=== PATIENT | female | born 1965 | race Caucasian/White ===

== ENCOUNTER 2016-10-07 08:00 | Outpatient (CLI) | payer OTHER | END 2016-10-07 08:01 | disposition home or self-care (01) | DX: R16.1 Splenomegaly, not elsewhere classified (principal); E03.9 Hypothyroidism, unspecified; Z85.850 Personal history of malignant neoplasm of thyroid; R16.0 Hepatomegaly, not elsewhere classified; R07.9 Chest pain, unspecified ==

== ENCOUNTER 2017-02-07 12:09 | Outpatient (CLI) | payer OTHER ==
--- NOTE | 2017-02-07 21:17 | Mammography Report ---
DIGITAL DIAGNOSTIC MAMMOGRAM: 02/07/2017 CLINICAL HISTORY: A 51-year-old female whose mother had breast cancer. 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 DCIS presented as a cluster of calcifications in the upper-outer quadrant of the right breast. COMPARISON: 07/30/2007, 08/06/2007, 08/21/2007, 01/20/2009, 06/16/2011, 2011, 06/28/2012, 10/24/2014, 10/30/2015, 11/18/2015, 06/07/2016, 02/07/2017. TECHNIQUE: Craniocaudad and oblique lateral views of each breast were obtained with Hologic full field digital mammography. Magnification craniocaudad and mediolateral views of each breast were obtained to complement the present study. FINDINGS: Breast parenchyma consists of extremely dense breasts bilaterally. Left breast demonstrates a cluster of calcification in the 9 o'clock position, 6 -7 cm medial and posterior to the nipple. This cluster of calcification was present on 10/30/2015 and is not dramatically changed. There are 2-3 clusters of calcification in the right breast. One is located in the 12 o'clock position 9.4 cm superior to the nipple. The other is located probably in the 9 o'clock position, 9.5 cm posterolateral to the nipple. This cluster of calcifications on preceding exams was felt to reside at the 3 o' clock position, 8 cm medial and posterior to the nipple. Magnification views done today suggest that these calcifications are laterally located. The calcifications in the 12 o'clock position of the right breast have been present in varying forms on multiple preceding examinations. At times, there have been less calcifications in this cluster and at times more calcifications in this cluster. This variability and its presence on preceding exams suggest that it is a benign etiology. The cluster of calcification now postulated in the 9 o'clock position of the right breast has shown progressive increase over the course of the patient's mammograms. They are somewhat similar to the calcifications that represented DCIS on patient's 08/06/2007 mammogram. For this reason, a stereotactic biopsy under mammographic guidance should be considered for further evaluation. Prior to the biopsy, a breast MRI should also be considered to exclude any other areas of concern. IMPRESSION: SMALL CLUSTER OF CALCIFICATION IN THE 9 O'CLOCK POSITION OF THE RIGHT BREAST HAS SHOW PROGRESSION OVER THE COURSE OF THE PATIENT'S MAMMOGRAMS SINCE 2015. RECOMMEND A STEREOTACTIC BIOPSY UNDER MAMMOGRAPHIC GUIDANCE FOR FURTHER EVALUATION. ALSO, A BILATERAL BREAST MRI SHOULD BE CONSIDERED FOR FURTHER EVALUATION FOR REASONS DISCUSSED ABOVE. A CLUSTER OF CALCIFICATION IS ONCE AGAIN NOTED IN THE 12 O'CLOCK POSITION OF THE RIGHT BREAST AND THE 9 O'CLOCK POSITION OF THE LEFT BREAST. THESE CLUSTERS OF CALCIFICATION ARE PROBABLY OF BENIGN ETIOLOGY. RECOMMEND THEY BE FOLLOWED WITH ANNUAL MAMMOGRAMS FOR FURTHER EVALUATION. BIRADS CATEGORY: 4, SUSPICIOUS FINDING. STEREOTACTIC BIOPSY UNDER MAMMOGRAPHIC GUIDANCE INDICATED FOR FURTHER EVALUATION. JOB #: [id number] EXT JOB #: [id number] SUNNY
== END 2017-02-07 12:10 | disposition home or self-care (01) ==
LOC: DI 12:09
PROVIDERS: ATTEND Internal Medicine Hematology & Oncology
DX: R92.1 Mammographic calcification found on diagnostic imaging of breast (principal); Z85.3 Personal history of malignant neoplasm of breast
CPT/HCPCS: 77066

== ENCOUNTER 2017-02-21 09:43 | Outpatient (CLI) | payer OTHER ==
[2017-02-21] MEDS ORDERED: GADOBUTROL 7.5 MMOL/7.5 ML VIAL IVP ONE (10:56)
--- NOTE | 2017-02-21 15:59 | MRI Report ---
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 COMPARISON: Multiple previous mammograms, most recently 02/07/2017, previous ultrasound 06/07/2016. TECHNIQUE: Using a dedicated breast coil, axial precontrast STIR, T1, dynamic post- contrast axial 3-D images, axial 3-D high resolution images, and post-contrast diffusion-weighted images were obtained. 7 mL of Gadavist was administered intravenously. Post processing with dynamic contrast enhancement analysis and multiplanar reformations were performed with Convrrt. FINDINGS: The breasts demonstrate extensive bilateral background stippled enhancement. Multiple cysts are noted bilaterally. The previously seen likely fibroadenoma in the right lower outer right breast is stable. In the right upper inner anterior breast, approximately 2 o'clock 4 cm from the nipple, there is a 1.1 x 1.0 x 0.9 cm focus of abnormal enhancement, with irregular margins and rapid uptake with washout kinetics. There is no evidence of skin, nipple or chest wall involvement. In the left upper central breast, 12 o'clock position approximately 6 cm from the nipple, there is a 1.1 x 1.1 x 1.0 cm focus of abnormal enhancement, which demonstrates rapid uptake and washout kinetics. There is no evidence of skin, nipple or chest wall involvement. Both of these are suspicious for malignancy. Second look ultrasound of both breasts is recommended, with biopsy of these regions if a target is sonographically identifiable. The axillary lymph nodes appear morphologically normal. No definite mammographic correlate to either of the suspicious MRI abnormalities is appreciated. IMPRESSION: BILATERAL SUSPICIOUS ENHANCING LESIONS. RECOMMENDATION: Bilateral second look ultrasound, with ultrasound-guided core needle biopsies if sonographic targets can be identified. If not, MRI guided biopsies would be recommended. Additionally further evaluation of the cluster of calcifications in the 9 o'clock position right breast remains recommended, based on the mammographic appearance. BI-RADS category 4, suspicious abnormalities bilaterally. Recommend second look ultrasound and ultrasound-guided biopsies, or MRI guided biopsies if no sonographic correlate can be identified. The patient has been instructed to obtain results from [facility] PA-C, in 5 business days. COMMENT: Breast MRI is a highly sensitive examination, and has a cancer detection threshold down to approximately 5 mm; however, it only has moderate specificity. Although breast MRI has a high negative predictive value, appropriate clinical and mammographic followup are always necessary. MRI may miss less angiogenic tumors, therefore it should not be used to avoid a biopsy which is otherwise clinically indicated. Normal-appearing lymph nodes may contain microscopic tumor. Due to prone positioning, the described location of findings may differ from other modalities. JOB #: [id number] EXT JOB #: [id number] [facility]ITALAnanda
== END 2017-02-21 09:44 | disposition home or self-care (01) ==
LOC: DI 09:43
PROVIDERS: ATTEND Physician Assistant Medical
DX: R92.8 Other abnormal and inconclusive findings on diagnostic imaging of breast (principal); R92.1 Mammographic calcification found on diagnostic imaging of breast; N63 Unspecified lump in breast; N60.12 Diffuse cystic mastopathy of left breast; N60.11 Diffuse cystic mastopathy of right breast; Z85.3 Personal history of malignant neoplasm of breast
CPT/HCPCS: 77059; A9585

== ENCOUNTER 2017-03-13 13:04 | Outpatient (CLI) | payer OTHER ==
[2017-03-13] MEDS ORDERED: BUPIVACAINE 0.5%-EPI 1:200000 PF 30 ML VIAL SUBQ ONE (15:27)
[2017-03-13] MEDS ORDERED: BUFFERED LIDOCAINE 10 ML SYRINGE IU ONE (15:27)
[2017-03-13 16:12] VITALS: BP 147/82
--- NOTE | 2017-03-14 07:46 | Ultrasound Report ---
REVISED: THIS REPORT WAS ORIGINALLY SIGNED ON 03/14/2017 @ 0817. ORDERS LINKED ON 03/15/2017. PROCEDURE: BILATERAL ULTRASOUND-GUIDED CORE NEEDLE BIOPSIES: 03/13/2017 CLINICAL INDICATION: MRI abnormalities 12 o'clock left breast, 2 o'clock right breast, second look ultrasound and core needle biopsy if correlative target can be visualized. FINDINGS: Initial scans of the right breast demonstrate a 7 x 7 x 7 mm nodule with irregular margins at the 2 o'clock position 4 cm from the nipple. Initial scans of the left breast demonstrate an 1.1 x 1.1 x 1.0 cm irregular nodule with associated calcifications at the 12 o'clock position of the left breast 6 cm from the nipple. Informed consent was obtained. Using standard aseptic technique, both 1% buffered lidocaine and Sensorcaine were injected into the right breast for local anesthesia. A small britt was made in the skin with a #11 blade. A 12- gauge Celero vacuum-assisted device was used to obtain three specimens. A Celero marker was placed into the biopsy cavity under ultrasound guidance. Using standard aseptic technique, both 1% buffered lidocaine and Sensorcaine were injected into the left breast for local anesthesia. A small britt was made in the skin with a #11 blade. A 12-gauge Celero vacuum-assisted device was used to obtain three specimens. A Celero marker was placed into the biopsy cavity under ultrasound guidance. The patient was taken to a separate mammography machine, and bilateral two view digital mammography was performed, documenting the markers in the expected locations and no significant postbiopsy hematoma. The wounds were dressed and ice applied. The patient was observed for approximately 15 minutes, then was discharged from [facility] in good condition following instructions on wound care and obtaining biopsy results. The tissue was sent for histologic analysis. IMPRESSION: ULTRASOUND-GUIDED BIOPSY OF THE BILATERAL BREASTS. AN ADDENDUM WILL BE MADE TO THIS REPORT WHEN PATHOLOGY IS REVIEWED TO ESTABLISH CONCORDANCE. JOB #: [id number] EXT JOB #: [id number]
--- NOTE | 2017-04-10 11:06 | Mammography Report ---
[id number] EXAM: [id number] US/BXBC ([id number]); [id number] US/BXBCEA ([id number]) REVISED: THIS REPORT WAS ORIGINALLY SIGNED ON 03/14/2017 @ 0817. ORDERS LINKED ON 03/15/2017. PROCEDURE: BILATERAL ULTRASOUND-GUIDED CORE NEEDLE BIOPSIES: 03/13/2017 CLINICAL INDICATION: MRI abnormalities 12 o'clock left breast, 2 o'clock right breast, second look ultrasound and core needle biopsy if correlative target can be visualized. FINDINGS: Initial scans of the right breast demonstrate a 7 x 7 x 7 mm nodule with irregular margins at the 2 o'clock position 4 cm from the nipple. Initial scans of the left breast demonstrate an 1.1 x 1.1 x 1.0 cm irregular nodule with associated calcifications at the 12 o'clock position of the left breast 6 cm from the nipple. Informed consent was obtained. Using standard aseptic technique, both 1% buffered lidocaine and Sensorcaine were injected into the right breast for local anesthesia. A small britt was made in the skin with a #11 blade. A 12- gauge Celero vacuum-assisted device was used to obtain three specimens. A Celero marker was placed into the biopsy cavity under ultrasound guidance. Using standard aseptic technique, both 1% buffered lidocaine and Sensorcaine were injected into the left breast for local anesthesia. A small britt was made in the skin with a #11 blade. A 12-gauge Celero vacuum-assisted device was used to obtain three specimens. A Celero marker was placed into the biopsy cavity under ultrasound guidance. The patient was taken to a separate mammography machine, and bilateral two view digital mammography was performed, documenting the markers in the expected locations and no significant postbiopsy hematoma. The wounds were dressed and ice applied. The patient was observed for approximately 15 minutes, then was discharged from [facility] in good condition following instructions on wound care and obtaining biopsy results. The tissue was sent for histologic analysis. IMPRESSION: ULTRASOUND-GUIDED BIOPSY OF THE BILATERAL BREASTS. AN ADDENDUM WILL BE MADE TO THIS REPORT WHEN PATHOLOGY IS REVIEWED TO ESTABLISH CONCORDANCE. JOB #: [id number] EXT JOB #: Cloth Spreader Screen Printing: Reading Radiologist: Norbert Astorga MD Releasing Radiologist: Norbert Astorga MD Released Date Time: 03/15/17 141 cc: Zakia Hooper ND; [facility] PA-C ADDENDUM ADDENDUM: Procedure performed by Dr. Astorga. Pathology reviewed by Dr. Astorga. Final pathology on the left abnormality is malignant, demonstrating invasive ductal carcinoma. These results are concordant with the imaging findings. Final pathology results on the right abnormality are benign, demonstrating florid fibrocystic mastopathy with no evidence of malignancy. These results are concordant with the imaging findings. RECOMMENDATION: Surgical consultation for treatment planning. Additionally, stereotactic biopsy of the progressing calcifications in the 9 o'clock position of the right breast is recommended prior to definitive therapy for the left breast malignancy. The patient has been scheduled to obtain results from [facility] PA-C on 03/17 at 11:00 a.m. Addendum Cloth Spreader Screen Printing: KAREN Addendum Reading Radiologist: Norbert Astorga MD Addendum Releasing Radiologist: Norbert Astorga MD Addendum Released Date Time: 03/16/17 1412 [facility]
== END 2017-03-13 13:05 | disposition home or self-care (01) ==
LOC: DI 13:04
PROVIDERS: ATTEND Physician Assistant Medical
DX: C50.812 Malignant neoplasm of overlapping sites of left female breast (principal); Z17.0 Estrogen receptor positive status [ER+]; N60.11 Diffuse cystic mastopathy of right breast
CPT/HCPCS: 19083; 19084; 77066; 88305; 88341; 88342; 88360; 88374

== ENCOUNTER 2017-05-11 20:53 | Outpatient (CLI) | payer OTHER | END 2017-05-11 20:54 | disposition short-term general hospital (02) | LOC: EMS 20:53 | PROVIDERS: ATTEND Surgery | DX: N64.4 Mastodynia (principal) | CPT/HCPCS: A0425; A0427 ==

== ENCOUNTER 2019-03-25 11:32 | Outpatient (CLI) | payer OTHER ==
[2019-03-25] MEDS ORDERED: IOVERSOL 320 100 ML VIAL IVP ONE ×2 (11:53→15:54)
--- NOTE | 2019-03-25 12:46 | CT Report ---
Reason: CHEST PAIN, TOBACCO USER Procedure Date: 03/25/2019 Accession Number: [id number] / [id number] Procedure: CT - ANGIO CHEST W/WO CPT Code: FULL RESULT: EXAM: CT ANGIOGRAM CHEST EXAM DATE: 03/25/2019 12:28 PM. CLINICAL HISTORY: Chest pain. COMPARISON: ABDOMEN/PELVIS W/ 03/31/2016 5:53 PM. TECHNIQUE: Routine helical imaging was performed through the chest in the pulmonary arterial phase. IV Contrast: 80 cc Optiray 320. Reconstructions: Coronal 3-D MIP reconstructions.Sagittal and coronal. In accordance with CT protocol optimization, one or more of the following dose reduction techniques were utilized for this exam: automated exposure control, adjustment of mA and/or KV based on patient size, or use of iterative reconstructive technique. FINDINGS: Pulmonary Arteries: Diagnostic quality: Adequate through the segmental arteries. No evidence for acute or chronic pulmonary emboli. Lungs/Pleura: There is a masslike process seen along the medial upper chest extending to involve the adjacent right upper lobe and lower lobe parenchyma (image 50/5). The mass measures approximately 4.4 x 4.0 cm (image 51/4) and causes mild mass-effect on the adjacent mediastinal structures including slight displacement of the distal mainstem bronchus. Remainder portions of the lungs are notable for a suspicious 9 mm nodule in the medial right lower lobe (image 108/5). A 5 mm nodule is seen in the right upper lobe (image 44/5). 4 mm nodule is seen in the right middle lobe (image 80/5). A few tiny scattered calcified granulomas are present. There is no effusion. Mediastinum: Normal. No cardiac enlargement or adenopathy. Thoracic Aorta: Unremarkable. Upper Abdomen: Unremarkable. Other: None. IMPRESSION: 1. No pulmonary embolism or other acute vascular pathology identified. 2. Infiltrative 4.4 x 4.0 cm paramediastinal mass along the medial right upper lobe/right lower lobe concerning for malignancy. Recommend tissue sampling. 3. Suspicious pulmonary nodules in the right lung measuring up to 9 mm. Intrapulmonary metastasis is not excluded. JOYCE The call report notification system was initiated by Dr. Buddy Zaragoza at 12:39 PM on 03/25/2019. ADDENDUM: 03/25/19 13:18 The above call report findings were discussed with Dory Nunez by Dr. Buddy Zaragoza at 01:18 PM on 03/25/2019.
[2019-03-25 12:52] LABS: BASOPHILS % (AUTO) 0.1 %; EOSINOPHILS % (AUTO) 0.5 %; HGB - HEMOGLOBIN 12.4 g/dL (12.0-16.0); LYMPHOCYTES # (AUTO) 1.8 10^3/uL (1.5-3.5); LYMPHOCYTES % (AUTO) 23.2 %; MEAN CORPUSCULAR HEMOGLOBIN 31.2 pg (27.0-31.0); MEAN CORPUSCULAR HGB CONC 33.2 g/dL (32.0-36.0); MEAN PLATELET VOLUME 9.9 fL (7.9-10.8); MONOCYTES # (AUTO) 0.5 10^3/uL (0.0-1.0); MONOCYTES % (AUTO) 6.8 %; NEUTROPHILS # (AUTO) 5.4 10^3/uL (1.5-6.6); PLT - PLATELET COUNT 245 10^3/uL (130-450); RED BLOOD COUNT 3.98 10^6/uL (4.20-5.40); RED CELL DISTRIBUTION WIDTH 12.8 % (12.0-15.0); WHITE BLOOD COUNT 7.8 x10^3/uL (4.8-10.8)
[2019-03-25 13:10] LABS: ALBUMIN 3.9 g/dL (3.2-5.5); ALBUMIN/GLOBULIN RATIO 1.3 (1.0-2.2); BILIRUBIN,TOTAL 0.8 mg/dL (0.2-1.0); CALCIUM 8.8 mg/dL (8.5-10.3); CREATININE 0.6 mg/dL (0.4-1.0); CRP - C-REACTIVE PROTEIN 1.2 mg/dL (0-1.0); TOTAL PROTEIN 6.8 g/dL (6.7-8.2)
== END 2019-03-25 11:33 | disposition home or self-care (01) ==
LOC: DI 11:32
PROVIDERS: ATTEND Physician Assistant
DX: R91.8 Other nonspecific abnormal finding of lung field (principal); R07.9 Chest pain, unspecified; Z72.0 Tobacco use
CPT/HCPCS: 71275; 80053; 84484; 85025; 85651; 86140; Q9967

== ENCOUNTER 2019-04-05 10:56 | Outpatient (CLI) | payer OTHER ==
[2019-04-05 18:45] LABS: BASOPHILS % (AUTO) 0.2 %; EOSINOPHILS # (AUTO) 0.1 10^3/uL (0.0-0.7); EOSINOPHILS % (AUTO) 0.6 %; HGB - HEMOGLOBIN 12.1 g/dL (12.0-16.0); LYMPHOCYTES # (AUTO) 2.7 10^3/uL (1.5-3.5); LYMPHOCYTES % (AUTO) 27.3 %; MEAN CORPUSCULAR HEMOGLOBIN 30.3 pg (27.0-31.0); MEAN CORPUSCULAR HGB CONC 31.3 g/dL (32.0-36.0); MEAN CORPUSCULAR VOLUME 96.8 fL (81.0-99.0); MEAN PLATELET VOLUME 10.7 fL (7.9-10.8); MONOCYTES # (AUTO) 0.7 10^3/uL (0.0-1.0); MONOCYTES % (AUTO) 6.9 %; NEUTROPHILS # (AUTO) 6.3 10^3/uL (1.5-6.6); NEUTROPHILS % (AUTO) 63.9 %; PLT - PLATELET COUNT 343 10^3/uL (130-450); RED CELL DISTRIBUTION WIDTH 13.3 % (12.0-15.0); WHITE BLOOD COUNT 9.8 x10^3/uL (4.8-10.8)
[2019-04-05 19:06] LABS: ALBUMIN 3.5 g/dL (3.2-5.5); ALBUMIN/GLOBULIN RATIO 1.1 (1.0-2.2); BILIRUBIN,TOTAL 0.7 mg/dL (0.2-1.0); CALCIUM 9.2 mg/dL (8.5-10.3); CREATININE 0.6 mg/dL (0.4-1.0); TOTAL PROTEIN 6.7 g/dL (6.7-8.2)
== END 2019-04-05 10:57 | disposition home or self-care (01) ==
LOC: LAB.WCP 10:56
PROVIDERS: ATTEND Family Medicine
DX: R91.8 Other nonspecific abnormal finding of lung field (principal)
CPT/HCPCS: 36415; 80053; 85025

== ENCOUNTER 2019-06-09 01:26 | Emergency (ER) | payer OTHER ==
--- NOTE | 2019-06-09 01:45 | ED Physician Documentation ---
PD HPI CHEST PAIN - Stated complaint Stated Complaint: CP/PORT CONCERN - Chief complaint Chief Complaint: Cardiac - History obtained from History obtained from: Patient - History of Present Illness Timing - onset: Enter time (20:00), Today Timing - onset during: Rest Timing - duration: Hours Timing - details: Gradual onset, Constant, Waxing and waning Pain level now: 4 Quality: Pain Location: Substernal, Left chest Radiation: Other (does not radiate) Improved by: Nothing Worsened by: Movement Associated symptoms: Shortness of air (mild with onset of pain, but resolved dyspnea) - Additional information Additional information: Patient complains of midline and left-sided chest pain starting at 8 PM tonight while at rest at home. She took oxycodone 5 mg without relief. She has had a port in place in the chest for one month through which she is receiving chemotherapy for lung cancer which is in the right perihilar region. She has not had this chest pain before. 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, Other - Present Medications Home Medications: Ambulatory Orders Medication Instructions Recorded Confirmed LORazepam [Ativan] 0.5 mg PO DAILY PRN 08/17/15 06/09/19 Levothyroxine [Synthroid] 150 mcg PO Q2D 08/17/15 06/09/19 Oxycodone HCl [Oxycontin] 20 tab PO Q8HR 06/09/19 06/09/19 oxyCODONE [Roxicodone] 5 mg PO DAILY 06/09/19 06/09/19 - Allergies Allergies/Adverse Reactions: Allergies Allergy/AdvReac Type Severity Reaction Status Date / Time Sulfa (Sulfonamide Allergy Rash Verified 06/09/19 01:36 Antibiotics) - Social History Does the pt smoke?: Yes Smoking Status: Current every day smoker Does the pt drink ETOH?: Yes Does the pt have substance abuse?: No - Immunizations Immunizations are current?: Yes PD ED PE NORMAL - Vitals Vital signs reviewed: Yes - General General: Alert and oriented X 3, No acute distress, Well developed/nourished - Neck Neck: Supple, no meningeal sign - Cardiac Cardiac: RRR, No murmur - Respiratory Respiratory: No respiratory distress, Clear bilaterally - Abdomen Abdomen: Soft, Non tender - Derm Derm: Normal color, Warm and dry - Extremities Extremities: No edema Results - Vitals Vitals: Oxygen O2 Source Room air - Labs Labs: Laboratory Tests 06/09/19 06/09/19 06/09/19 01:45 01:45 01:45 WBC 6.6 RBC 3.45 L Hgb 10.5 L Hct 31.4 L MCV 91.0 MCH 30.4 MCHC 33.4 RDW 13.3 Plt Count 226 MPV 10.5 Neut # (Auto) 5.2 Lymph # (Auto) 1.1 L Irion # (Auto) 0.2 Eos # (Auto) 0.0 Baso # (Auto) 0.0 Absolute Nucleated RBC 0.00 Nucleated RBC % 0.0 Sodium 138 Potassium 4.0 Chloride 104 Carbon Dioxide 25 Anion Gap 9.0 BUN 20 Creatinine 0.6 Estimated GFR (MDRD) 105 Glucose 101 H Calcium 8.5 Total Bilirubin 0.6 AST 18 ALT 26 Alkaline Phosphatase 58 Troponin I High Sens 3.1 Total Protein 6.5 L Albumin 3.6 Globulin 2.9 Albumin/Globulin Ratio 1.2 Lipase 30 - Rads (name of study) CT chest w/ contrast Radiology: Prelim report reviewed, See rad report PD MEDICAL DECISION MAKING - ED course Complexity details: reviewed results, re-evaluated patient, considered differential, d/w patient, d/w family ED course: results d/w patient and family, including smaller size of lung mass but spread to invasion of mediastinum. we also discussed the adrenal mass and the vertebral pathology. she is reporting goof relief after IV analgesia and is comfortable with discharge home, will return if worse and will seek expeditious follow up. she is stable for discharge at this time. Departure - Departure Disposition: 01 Home, Self Care Clinical Impression: Chest pain Condition: Good Instructions: ED Chest Pain Atypical Unkn Cause Follow-Up: Tyrone Taveras DO [Primary Care Provider] - Discharge Date/Time: 06/09/19 04:30
[2019-06-09 01:58] LABS: BASOPHILS % (AUTO) 0.3 %; EOSINOPHILS % (AUTO) 0.3 %; HGB - HEMOGLOBIN 10.5 g/dL (12.0-16.0); LYMPHOCYTES # (AUTO) 1.1 10^3/uL (1.5-3.5); LYMPHOCYTES % (AUTO) 16.6 %; MEAN CORPUSCULAR HEMOGLOBIN 30.4 pg (27.0-31.0); MEAN CORPUSCULAR HGB CONC 33.4 g/dL (32.0-36.0); MEAN PLATELET VOLUME 10.5 fL (7.9-10.8); MONOCYTES # (AUTO) 0.2 10^3/uL (0.0-1.0); MONOCYTES % (AUTO) 3.6 %; NEUTROPHILS # (AUTO) 5.2 10^3/uL (1.5-6.6); NEUTROPHILS % (AUTO) 78.6 %; PLT - PLATELET COUNT 226 10^3/uL (130-450); RED BLOOD COUNT 3.45 10^6/uL (4.20-5.40); RED CELL DISTRIBUTION WIDTH 13.3 % (12.0-15.0); WHITE BLOOD COUNT 6.6 x10^3/uL (4.8-10.8)
[2019-06-09 02:11] LABS: ALBUMIN 3.6 g/dL (3.2-5.5); ALBUMIN/GLOBULIN RATIO 1.2 (1.0-2.2); BILIRUBIN,TOTAL 0.6 mg/dL (0.2-1.0); CALCIUM 8.5 mg/dL (8.5-10.3); CREATININE 0.6 mg/dL (0.4-1.0); TOTAL PROTEIN 6.5 g/dL (6.7-8.2)
[2019-06-09] MEDS ORDERED: ONDANSETRON 4 MG/2 ML VIAL IVP STA (02:39)
[2019-06-09] MEDS ORDERED: HYDROmorphone 1 MG/ML CARPUJECT IVP STA (02:39)
[2019-06-09] MEDS ORDERED: IOVERSOL 320 100 ML VIAL IVP ONE ×2 (02:52→03:11)
--- NOTE | 2019-06-09 03:38 | CT Report ---
Reason: chest pain Procedure Date: 06/09/2019 Accession Number: [id number] / [id number] Procedure: CT - ANGIO CHEST W/WO CPT Code: FULL RESULT: EXAM: CT ANGIOGRAM CHEST EXAM DATE: 06/09/2019 03:10 AM. CLINICAL HISTORY: Chest pain. COMPARISON: CHEST ANGIO 03/25/2019 12:20 PM. TECHNIQUE: Routine helical imaging was performed through the chest in the pulmonary arterial phase. IV Contrast: CE. Reconstructions: Coronal 3-D MIP reconstructions.Sagittal and coronal. In accordance with CT protocol optimization, one or more of the following dose reduction techniques were utilized for this exam: automated exposure control, adjustment of mA and/or KV based on patient size, or use of iterative reconstructive technique. FINDINGS: Pulmonary Arteries: Diagnostic quality: Adequate through the segmental arteries. No evidence for acute or chronic pulmonary emboli. RV/LV is within normal limits. There is no interventricular septal bowing. There is no reflux of contrast material in the IVC. The previously noted mass in the medial aspect of the right upper lobe has decreased in size yet this mass is clearly invaded into the mediastinum. Previously the transverse diameter of the mass measured 4.3 x 4 cm transversely and currently measures approximately 20 mm x 26 mm. The superior inferior extent of this mass is approximately 52 mm at the borders are difficult to fully define. There is contiguity and slight mass-effect on the posterior margin of the right mainstem bronchus. There is clear invasion into the T4 vertebral body and there is contiguity with the T3 and T5 vertebral bodies. There are multiple tiny scattered nodules which are dense and likely represent small granulomas. On the other hand, there are other suspicious nodules within the lungs. For example there is a irregular nodule in the right upper lobe which measures 9 mm x 6 mm on series 5 image 51. This is unchanged from the prior study. There is a small 5 mm nodule in the right upper lobe on series 5 image 43 which is unchanged from the prior study. There is a small nodule in the right middle lobe contiguous with the oblique fissure on series 5 image 61 which is unchanged. There is a small pulmonary nodule in the right lower lobe series 5 image 96 which is unchanged at 8 mm. No infiltrates have developed. There are no pleural effusions. There is a new right adrenal mass measuring 15 mm x20 mm. IMPRESSION: 1. The size of the neoplasm in the medial aspect of the right upper lobe has decreased in size yet there is definite and progressive invasion into the mediastinum. 2. There is invasion and partial destruction of the T4 vertebral body. There is contiguity with the anterior borders of the T3 and T5 vertebral bodies. 3. Small soft tissue pulmonary nodules are stable. In addition there are tiny dense nodules which likely represent small granulomas. 4. New left adrenal mass. 5. No evidence for pulmonary emboli. RADIA
[2019-06-09 04:08] VITALS: BP 106/67
== END 2019-06-09 04:30 | disposition home or self-care (01) ==
LOC: ED 01:26
DX: R07.89 Other chest pain (principal); C34.11 Malignant neoplasm of upper lobe, right bronchus or lung; C78.1 Secondary malignant neoplasm of mediastinum; F17.200 Nicotine dependence, unspecified, uncomplicated
CPT/HCPCS: 36415; 71275; 80053; 83690; 84484; 85025; 93005; 96374; 96375; 99284; J1170; Q9967